=== PATIENT | male | born 1980 | race Caucasian/White ===

== ENCOUNTER 2023-09-12 00:43 | Observation (INO) | payer OTHER, SELFPAY ==
[2023-09-11 18:42] VITALS: BP 130/88
[2023-09-11] MEDS: OMNIPAQUE 50 ML PO (21:17)
[2023-09-11 21:19] VITALS: BP 126/78; BMI 26.5
[2023-09-11 21:27] LABS: % Basophils 0.2 % (0-2); % Eosinophils 0.2 % (0-6); % Immature Granulocytes 0.3 % (0-0.5); % Lymphocytes 2.9 % (20.5-51.1); % Monocytes 4.1 % (1.7-9.3); % Neutrophils 92.3 % (42.2-75.2); Absolute Lymphocytes 0.3 10^3/uL (1.2-3.4); Absolute Monocytes 0.5 10^3/uL (0.1-0.6); Absolute Neutrophils 10.5 10^3/uL (1.4-6.5); Hematocrit 42.6 % (39.0-52.0); Hemoglobin 15.1 g/dL (13.0-18.0); Mean Corp Hgb Conc. 35.4 g/dL (33.0-37.0); Mean Corpuscular Hgb 31.7 pg (27.0-31.0); Mean Corpuscular Volume 89.3 fL (80.0-94.0); Mean Platelet Volume 11.2 fL (7.4-10.4); Nucleated Red Blood Cells % 0 % (-); Platelet Count 163 10^3/uL (130-400); Red Blood Cell Count 4.77 10^6/uL (4.70-6.10); Red Cell Dist. Width 13.2 % (11.5-14.5); White Blood Cell Count 11.4 10^3/uL (4.8-10.8)
[2023-09-11 21:55] LABS: ALT (SGPT) 28 U/L (0-50); AST (SGOT) 35 U/L (17-59); Albumin 4.6 g/dl (3.5-5.0); Alkaline Phosphatase 70 U/L (38-126); Blood Urea Nitrogen 18 mg/dl (9-20); Calcium 9.6 mg/dl (8.4-10.2); Carbon Dioxide 24 mmol/L (22-30); Chloride 102 mmol/L (98-107); Estimated Creatinine Clearance 80 ml/min; Glucose 119 mg/dl (70-99); Lipase 81 U/L (23-300); Potassium 3.5 mmol/L (3.5-5.1); Sodium 134 mmol/L (135-145); Total Protein 7.4 g/dl (6.3-8.2); eGFR > 60.00
[2023-09-11 22:41] LABS: Urine Albumin Negative (Neg - Trace); Urine Bilirubin Negative (Negative); Urine Character Clear (Clear); Urine Color Yellow; Urine Glucose Negative (Negative); Urine Ketone 3+ (Negative); Urine Leukocyte Negative (Negative); Urine Nitrite Negative (Negative); Urine Occult Blood Trace (Negative); Urine Specific Gravity 1.015 (<1.030); Urine Urobilinogen Negative (Neg - 1+); Urine pH 6.5 (5.0-9.0)
[2023-09-11 22:52] LABS: Urine Red Blood Cell 0-2 /HPF (0-2); Urine Squamous Cell 0-2 /LPF (Few); Urine White Cell None Seen /HPF (0-5)
--- NOTE | 2023-09-11 23:00 | ED.GENMED ---
History of Present Illness
<Milli Kaplan NP - Last Filed: 09/11/23 23:03>
General
Chief Complaint: Abdominal Pain
Source: patient
Exam Limitations: none
Time Seen by Provider: 09/11/23 20:37
Nursing documentation reviewed up to this point in time: agreed with
Travel History
Have you had any contact with someone who has COVID-19?: No
Do you have any symptoms of coronavirus? Fever > 100 degrees, chills, cough, shortness of breath, sore throat, loss of taste or smell, muscle aches, or headache?: No
History of Present Illness
History of Present Illness:
Patient to eD with complaint of diffuse abdominal pain. States pain started last PM and continues to worsen. Denies fever/chill. +nausea, no vomiting. Had 1 episode of diarrhea last PM Brought self to ED for eval
Past History
<Milli Kaplan NP - Last Filed: 09/11/23 23:03>
Past History
ED Past Medical History: None
ED Past Surgical History: None
Social History
Tobacco: Non-smoker
Alcohol: Occasional
Drug: None
Review of Systems
<Milli Kaplan NP - Last Filed: 09/11/23 23:03>
Review of Systems
Allergies reviewed?: Yes
All Other Systems: ROS reviewed and negative except as documented in HPI and ROS
Constitutional: Reports no symptoms
EENT: Reports no symptoms
Respiratory: Reports no symptoms
Cardiac: Reports no symptoms
ABD/GI: Reports abdominal pain, nausea and diarrhea
: Reports no symptoms
Musculoskeletal: Reports no symptoms
Skin: Reports no symptoms
Neurological: Reports no symptoms
Psychiatric: Reports no symptoms
Phy Exam
<Milli Kaplan NP - Last Filed: 09/11/23 23:03>
General Physical Exam
General Presentation: well appearing and mild distress
General age: appears stated age
General Skin: warm and dry
General Habitus: normal
General Mental: alert
Cardiovascular Exam
Cardiovascular Exam: regular rate/rhythm
Gastrointestinal Exam
Gastrointestinal Exam: normal bowel sounds, soft, no organomegaly, non distended and no cva tenderness
Palpation: generalized: Moderate tenderness
Musculoskeletal Exam
Musculoskeletal Exam: full ROM and neuro vasc intact
Skin Exam
Skin Exam: normal color, warm/dry and no rash
Psychiatric Exam
Psychiatric Exam: normal mood/affect
Course
<Milli Kaplan NP - Last Filed: 09/11/23 23:03>
Orders/Labs/Results
Orders:
Orders
09/11/23 20:52
CT Abd/pel W Iv And Oral Contr Urgent
Comment:
Reason For Exam: pain, diffuse
Iohexol [Omnipaque] See Protocol PO NOW STA
09/11/23 21:18
Complete Blood Count/With Diff Urgent
Comprehensive Metabolic Panel Urgent
Lipase Urgent
09/11/23 22:33
Urinalysis Reflex To Culture Urgent
Date Specimen was Collected: 09/11/23
Time Specimen was Collected: 22:32
Urine Microscopic Reflex Cult Urgent
09/11/23 23:56
Acetaminophen [Tylenol] 1,000 mg PO NOW STA
09/11/23 23:57
Acetaminophen [Tylenol] 1,000 mg .ROUTE .STK-MED ONE
09/12/23 00:23
LevoFLOXacin 500 MG/100 ML [Levaquin] 500 mg in 100 ml IV NOW
09/12/23 00:24
0.9% Sodium Chloride 1000 ml [Nss] 1,000 ml IV BOLUS
HYDROmorphone [Dilaudid] 0.5 mg IV NOW STA
MetroNIDAZOLE 500 MG/100 ML [Flagyl 500 mg] 100 ml IV NOW
Abnormal Lab Results
09/11/23 09/11/23
21:18 22:33
WBC 11.4 H 10^3/uL
(4.8-10.8)
MCH 31.7 H pg
(27.0-31.0)
MPV 11.2 H fL
(7.4-10.4)
Absolute Neuts (auto) 10.5 H 10^3/uL
(1.4-6.5)
Absolute Lymphs (auto) 0.3 L 10^3/uL
(1.2-3.4)
Neutrophils % 92.3 H %
(42.2-75.2)
Lymphocytes % 2.9 L %
(20.5-51.1)
Sodium 134 L mmol/L
(135-145)
Glucose 119 H mg/dl
(70-99)
Total Bilirubin 2.0 H mg/dl
(0.2-1.3)
Urine Ketones 3+ A
(Negative)
Ur Occult Blood Reflex Trace A
(Negative)
09/11/23 21:18
09/11/23 21:18
Vital Signs
Initial and Last Documented VS:
Initial Vital Signs
Temp Pulse Resp BP Pulse Ox
98.5 F 74 20 130/88 100
09/11/23 18:42 09/11/23 18:42 09/11/23 18:42 09/11/23 18:42 09/11/23 18:42
Last Documented Vital Signs
Temp Pulse Resp BP Pulse Ox
100.5 F H 86 20 112/75 96
09/11/23 23:54 09/11/23 23:54 09/11/23 18:42 09/11/23 23:54 09/11/23 23:54
Timilt;Martinez Mariano, DO - Last Filed: 09/12/23 00:27>
Orders/Labs/Results
Orders:
Orders
09/11/23 20:52
CT Abd/pel W Iv And Oral Contr Urgent
Comment:
Reason For Exam: pain, diffuse
Iohexol [Omnipaque] See Protocol PO NOW STA
09/11/23 21:18
Complete Blood Count/With Diff Urgent
Comprehensive Metabolic Panel Urgent
Lipase Urgent
09/11/23 22:33
Urinalysis Reflex To Culture Urgent
Date Specimen was Collected: 09/11/23
Time Specimen was Collected: 22:32
Urine Microscopic Reflex Cult Urgent
09/11/23 23:56
Acetaminophen [Tylenol] 1,000 mg PO NOW STA
09/11/23 23:57
Acetaminophen [Tylenol] 1,000 mg .ROUTE .STK-MED ONE
09/12/23 00:23
LevoFLOXacin 500 MG/100 ML [Levaquin] 500 mg in 100 ml IV NOW
09/12/23 00:24
0.9% Sodium Chloride 1000 ml [Nss] 1,000 ml IV BOLUS
HYDROmorphone [Dilaudid] 0.5 mg IV NOW STA
MetroNIDAZOLE 500 MG/100 ML [Flagyl 500 mg] 100 ml IV NOW
Abnormal Lab Results
09/11/23 09/11/23
21:18 22:33
WBC 11.4 H 10^3/uL
(4.8-10.8)
MCH 31.7 H pg
(27.0-31.0)
MPV 11.2 H fL
(7.4-10.4)
Absolute Neuts (auto) 10.5 H 10^3/uL
(1.4-6.5)
Absolute Lymphs (auto) 0.3 L 10^3/uL
(1.2-3.4)
Neutrophils % 92.3 H %
(42.2-75.2)
Lymphocytes % 2.9 L %
(20.5-51.1)
Sodium 134 L mmol/L
(135-145)
Glucose 119 H mg/dl
(70-99)
Total Bilirubin 2.0 H mg/dl
(0.2-1.3)
Urine Ketones 3+ A
(Negative)
Ur Occult Blood Reflex Trace A
(Negative)
09/11/23 21:18
09/11/23 21:18
Vital Signs
Initial and Last Documented VS:
Initial Vital Signs
Temp Pulse Resp BP Pulse Ox
98.5 F 74 20 130/88 100
09/11/23 18:42 09/11/23 18:42 09/11/23 18:42 09/11/23 18:42 09/11/23 18:42
Last Documented Vital Signs
Temp Pulse Resp BP Pulse Ox
100.5 F H 86 20 112/75 96
09/11/23 23:54 09/11/23 23:54 09/11/23 18:42 09/11/23 23:54 09/11/23 23:54
<Martinez Mariano DO - Last Filed: 09/12/23 00:27>
*Radiology
Radiology exam reviewed: radiology read reviewed
*Pulse Oximetry
Patient hypoxic: no
*Critical Care Note
Total Time (30-74mins, 75-104mins- exclusive of procedures): Not Applicable
ED Attending Note
<Milli Kaplan NP - Last Filed: 09/11/23 23:03>
-
Portions of this chart may have been created with voice recognition software.� Occasional wrong word or��sound alike� substitutions may have occurred due to the inherent limitations of voice recognition software.
<Martinez Mariano DO - Last Filed: 09/12/23 00:27>
ED Attending Note
Patient seen and examined by attending physician: Yes
I performed the substantive portion of visit, reviewed & personally made and approve the management plan that is documented in note by myself or LORA.: Yes
ED Attending Note:
Seen with SCHOOL INSPECTOR examined independently reviewed with [facility] radi[facility]
Positive appendicitis
On exam patient is febrile tender in the right lower abdomen
Allergies noted will start antibiotics message sent to house SCHOOL INSPECTOR and general surgeon on-call
Discharge Plan
Departure
Patient Disposition: Admit
Date of Disposition: 09/12/23
Time of Disposition: 00:26
Admit to: Med/Surg
Presentation/result/management discussed w/ accepting MD/DO: GS
Patient with high blood pressure during this ER visit?: No
Condition: Good
Covid-19: Not Applicable
Discharge Problem:
Acute appendicitis
Referrals:
Salvador Casillas MD [Family Provider] -
Interventions
Interventions:
*Risk Screen - Suicide Last Done: 09/11/23 18:42
*General Assessment Last Done: 09/11/23 18:42
*Neglect/Abuse Screening Last Done: 09/11/23 18:42
*ED COVID-19 Vaccine History Last Done: 09/11/23 21:19
ZD-Txxnqf-Cdjgkwyjoe Assessment Last Done: 09/11/23 21:26
Discharge Date and Time
Print Language: [place]
[2023-09-11 23:54] VITALS: BP 112/75
[2023-09-11] MEDS: TYLENOL 1000 MG PO (23:59)
[2023-09-12] VITALS (10 sets, daily range): BP systolic 92–110; BP diastolic 61–84
--- NOTE | 2023-09-12 00:26 | HPS.HSE ---
Addendum entered and electronically signed by Rikci Jacobo MD 09/12/23 11:32:
I saw and examined the patient.
The Billing Services Manager's note was reviewed and I agree with the note.
Comment: RLQ ttp for about 2 days with chills, anorexia. Ttp on exam to RLQ. OCTOR for lap appy. IV abx
Original Note:
Family Physician
-
Family Physician: Salvador Casillas
Chief Complaint
-
Abdominal pain
History of Present Illness
43 years old male present in ER with a complain of abdominal pain that started last night around 7pm. Pain started around umbilical area rated 4/10 of pain scale felt as gas pressure. Patient took 2 Tums that was not effective. Symptoms associated
with nausea. Denied vomiting, diarrhea, constipation, urinary symptoms, SOB, chest pain or any other symptoms. Patient has no medical history and no pervious surgery and currently not receiving any meds in home .
Medical History
Past Medical History
Past Medical History: Reports None
Past Surgical History: Reports None
Social History
Tobacco: Non-smoker
Alcohol: Occasional
Drug: None
Personal: Other
Living: Other
Employment: Other
Family History
Family History: Not pertinent
Allergies / Home Medications
Allergies reflects when Allergies were last updated in [facility].
Home Medications with original date entered in [facility]
Allergy/Medication List:
Patient Allergies
Allergy/AdvReac Type Severity Reaction Status Date / Time
Penicillins Allergy Unknown Verified 09/11/23 18:45
This is your updated home medication list that has been updated as of 09/12/23
If Other, explain: Patient is not receiving meds at home
Review of Systems
-
Constitutional: Reports No Symptoms
Respiratory: Reports No Symptoms
Cardiac: Reports No Symptoms
Abdomen/GI: Reports Abdominal Pain (RLQ) and Nausea
: Reports No Symptoms
Musculoskeletal: Reports No Symptoms
Skin: Reports No Symptoms
Neurological: Reports No Symptoms
Endocrine: Reports No Symptoms
Hematologic/Lymphatic: Reports No Symptoms
Psych: Reports No Symptoms
Physical Exam
Vital Signs
Vital Signs
Temp Pulse Resp BP Pulse Ox
100.5 F H 86 20 112/75 96
09/11/23 23:54 09/11/23 23:54 09/11/23 18:42 09/11/23 23:54 09/11/23 23:54
Physical Exam
General: No Apparent Distress
Respiratory: Clear
Cardiac: Regular Rhythm
GI: Soft, Normal Bowel Sounds and Tender (RLQ, + McBurney point and obturator sign )
Musculoskeletal: No Edema
Skin: Warm
Neuro: AO x 3
Psych: Calm
Laboratory Results
-
09/11/23 21:18
09/11/23 21:18
Laboratory Results
Total Bilirubin 2.0 mg/dl (0.2-1.3) H 09/11/23 21:18
AST 35 U/L (17-59) 09/11/23 21:18
ALT 28 U/L (0-50) 09/11/23 21:18
Alkaline Phosphatase 70 U/L (38-126) 09/11/23 21:18
Lipase 81 U/L (23-300) 09/11/23 21:18
Data Reviewed
-
Lab Data: Discussed with Patient
Impression/Plan
-
CT abdomen/plvs shows acute appendicitis, appendix is abnormally enlarged at 12mm. there is associated enlargement and surrounding inflammatory stranding, but no abscess or evidence of perforation.
There is secondary thickening of the cecal lip and the adjacent terminal ileum.
Stool levels in the large bowel suggestive of diarrhea. No evidence of obstruction, wall thickening, or inflammatory stranding,
-Gallbladder and kidney are unremarkable.
-WBC 11.4, Temp 100.5
IMPRESSION:
acute appendicitis
PLAN:
Admit/ observation (Dr. Jacobo / general surgery)
NPO
IVF
analgesics
antiemetics
Abx received levofloxacin and Metronidazole in ER patient is allergic to penicillins.
DVT Prophylaxis: SCDs
Code status: Full code
[2023-09-12] MEDS: LEVAQUIN 100 IV (00:35)
[2023-09-12] MEDS: NSS 1000 IV ×2 (00:35→00:45)
[2023-09-12] MEDS: FLAGYL 500 MG 100 IV (02:00)
--- NOTE | 2023-09-12 04:44 | DOWNTIME ---
There was a [employer] Client Rehabilitation Program Coordinator Downtime on 09/12/2023 from 0100 to 09/12/2023 at 0439. Downtime documentation of patient's care, including medication administrations, has been reconciled in the electronic record per guidelines. Refer to the
patient's paper chart under the miscellaneous tab to see printed paper medication records and downtime forms.
--- NOTE | 2023-09-12 12:50 | W.IMMPOSTOP ---
Surgical Immed Post Op Note
-
Primary Surgeon: Odalis
Pre-op Diagnosis: Acute appendicitis
Post-op Diagnosis: Same
Procedure Performed: Laparoscopic appendectomy
Anesthesia Type: GETA
Specimen / Cultures: Appendix
Estimated Blood Loss: 5cc
Complications: None immediate
Operative Findings: Severely inflamed, nonperforated appendicitis
--- NOTE | 2023-09-12 12:51 | OR.RPT ---
Operative Report
Operative Report
Primary Surgeon: Odalis
Pre-op Diagnosis: Acute appendicitis
Post-op Diagnosis: Same
Procedure Performed: Laparoscopic appendectomy
Anesthesia Type: GETA
Specimen / Cultures: Appendix
Estimated Blood Loss: 5cc
Complications: None immediate
Operative Findings: Severely inflamed, nonperforated appendicitis
Date of Surgery: 09/12/23
Indications: This 43M developed right lower quadrant abdominal pain and on workup was found to have acute appendicitis. Laparoscopic appendectomy was elected.
Description of procedure: The patient was placed on the operating table in the supine position. General anesthesia was induced. A time-out was completed verifying correct patient, procedure, site, positioning, and special equipment prior to
beginning this procedure. An orogastric tube was placed. The abdomen was prepped and draped in the usual sterile fashion. A stab incision was made in left upper quadrant and the Veress needle was inserted. Proper position was confirmed by aspiration
and saline meniscus test. The abdomen was insufflated with carbon dioxide to a pressure of 12 mmHg. The patient tolerated insufflation well.
A 5mm optical trocar was then inserted at the left lower quadrant. The laparoscope was inserted and the abdomen inspected. No injuries from initial trocar placement or Veress needle insertion were noted. Additional trocars were then inserted in the
following locations: a 12-mm trocar at the umbilicus and a 5-mm trocar midline in the suprapubic space. The abdomen was inspected and no abnormalities were found. The table was placed in the Trendelenburg position with the right side up. The
appendix was severely enflamed and covered by a sheet of omentum. The omentum was peeled up and away exposing the appendiceal tip. The tip of the appendix was gently grasped with an atraumatic grasper and retracted toward the patient�s feet and
abdominal wall. This maneuver exposed the appendiceal blood supply which was controlled with the Ligasure device. Following this, a laparoscopic linear cutting stapler with a 45mm johnson load was deployed and used to transect the appendix at its base.
The appendix was placed in an endoscopic retrieval bag, removed through the umbilical port, and passed off the table as a specimen.
We then turned our attention to the staple line, which was noted to be hemostatic. Scant turbid free fluid was suctioned from the pelvis. The umbilical trocar site was closed at the fascial level laparoscopically with 2-0 PDS under direct vision.
Secondary trocars were removed under direct vision and noted to be hemostatic. The laparoscope was withdrawn and the abdomen was allowed to collapse. The skin was closed with subcuticular sutures of 4-0 monocryl and topical skin adhesive. The
orogastric tube was removed.
The patient tolerated the procedure well and was taken to the postanesthesia care unit in stable condition.
== END 2023-09-12 15:25 | disposition home or self-care (01) ==
LOC: PACUI 00:43
PROVIDERS: Nurse Practitioner; ADMITTING PHYSICIAN Surgery; EMERGENCY PHYSICIAN Emergency Medicine; FAMILY PHYSICIAN Family Medicine
DX: K35.80 Unspecified acute appendicitis (principal)
CPT/HCPCS: 44970; 88304; 74177; 80053; 81003; 81015; 83690; 85025; 99285; G0378; Q9967

== ENCOUNTER 2024-05-27 06:44 | Emergency (ER) | payer OTHER, SELFPAY ==
[2024-05-27 06:53] VITALS: BP 132/85
[2024-05-27 07:14] LABS: % Basophils 0.5 % (0-2); % Eosinophils 17.1 % (0-6); % Immature Granulocytes 0.2 % (0-0.5); % Lymphocytes 21.5 % (20.5-51.1); % Monocytes 8.7 % (1.7-9.3); Absolute Lymphocytes 1.3 10^3/uL (1.2-3.4); Absolute Monocytes 0.5 10^3/uL (0.1-0.6); Absolute Neutrophils 3.2 10^3/uL (1.4-6.5); Hemoglobin 14.9 g/dL (13.0-18.0); Mean Corp Hgb Conc. 33.9 g/dL (33.0-37.0); Mean Corpuscular Hgb 31.3 pg (27.0-31.0); Mean Corpuscular Volume 92.4 fL (80.0-94.0); Mean Platelet Volume 11.2 fL (7.4-10.4); Nucleated Red Blood Cells % 0 % (-); Platelet Count 159 10^3/uL (130-400); Red Blood Cell Count 4.76 10^6/uL (4.70-6.10); Red Cell Dist. Width 12.9 % (11.5-14.5); White Blood Cell Count 6.1 10^3/uL (4.8-10.8)
[2024-05-27 07:27] LABS: ALT (SGPT) 34 U/L (0-50); AST (SGOT) 37 U/L (17-59); Albumin 4.4 g/dl (3.5-5.0); Alkaline Phosphatase 65 U/L (38-126); Blood Urea Nitrogen 20 mg/dl (9-20); Calcium 9.5 mg/dl (8.4-10.2); Carbon Dioxide 27 mmol/L (22-30); Chloride 104 mmol/L (98-107); Glucose 113 mg/dl (70-99); Potassium 4.2 mmol/L (3.5-5.1); Sodium 138 mmol/L (135-145); Total Bilirubin 0.8 mg/dl (0.2-1.3); Total Protein 6.9 g/dl (6.3-8.2); eGFR 57.79
[2024-05-27 07:38] LABS: Troponin I 0.012 ng/ml
[2024-05-27 10:04] VITALS: BMI 28.2
[2024-05-27 10:30] VITALS: BP 122/85
[2024-05-27 10:40] VITALS: BP 122/84
[2024-05-27 10:50] VITALS: BP 127/81
[2024-05-27 11:00] VITALS: BP 121/90
--- NOTE | 2024-05-27 11:38 | ED.GENMED ---
History of Present Illness
General
Chief Complaint: Chest Pain
Source: patient
Time Seen by Provider: 05/27/24 09:27
History of Present Illness
History of Present Illness:
44-year-old male with no significant past medical history presenting to the emergency department for evaluation after waking up around 4 AM this morning with a discomfort in the sternal to right side of his anterior chest, somewhat constant and
accompanied with a little bit of nausea with nausea now resolved and the chest discomfort mostly resolved. Patient states he cannot think of anything that may have caused the symptoms noting that he had a normal dinner last night, denies any other
symptoms including fevers or recent illnesses, cough, nasal congestion, sore throat, abdominal pain, back or flank pain, urinary symptoms or bowel changes. Social history was unremarkable. He does note for the holiday season he has been eating
little bit more sugary foods than normal. Social history was otherwise noncontributory. Family history was noted for father having a history of atrial fibrillation.
Past History
Past History
ED Past Medical History: None
ED Past Surgical History: Appendectomy
Social History
Tobacco: Non-smoker
Alcohol: Occasional
Drug: None
Personal:
Living: with family
Review of Systems
Review of Systems
All Other Systems: ROS reviewed and negative except as documented in HPI and ROS
Phy Exam
Physical Exam
Physical Exam:
GENERAL: Alert , in no apparent distress
HEAD: NCAT
EYE: clear conjunctiva
NECK: Supple
ENT: o/p clr, mmm.
CARDIAC: Regular rate and rhythm, no murmur .
LUNGS: Clear breath sounds bilaterally, no acute respiratory distress, no wheezes/rales/rhonchi
ABDOMEN: Soft, without focal tenderness, no r/g, no cvat
NEUROLOGICAL: Alert and oriented
SKIN: Warm and dry, skin intact.
MUSCULOSKELETAL: No edema, well perfused.
PSYCH: Normal and appropriate interaction.
Scores
Heart Failure Risk
Heart Failure Risk Score: Not Applicable
Heart Score for Chest Pain Patients
STEMI patient?: No
History: Slightly or Non-Suspicious
ECG: Normal
Age: >45 - <65 years
Risk Factors: No Risk Factors
Troponin: </= Normal Limit
Heart Score for Chest Pain Patients: 1
Heart Score Risk: 2.5% MACE over next 6 weeks
Withdrawal Assessment of Alcohol
Withdrawal Assessment Completed?: Not applicable
Course
Orders/Labs/Results
Orders:
Orders
05/27/24 06:52
Electrocardiogram (*1) Urgent
Reason for Study: Chest Pain
EKG- Treatment ONCE
05/27/24 07:01
Complete Blood Count/With Diff Urgent
Comprehensive Metabolic Panel Urgent
Troponin I Urgent
05/27/24 07:07
CR Chest - 2 Views Urgent
Comment:
Reason For Exam: chest pain
05/27/24 09:58
Electrocardiogram (*1) Urgent
Reason for Study: Abdominal Pain
EKG- Treatment ONCE
05/27/24 11:01
Troponin I Urgent
Abnormal Lab Results
05/27/24
07:01
MCH 31.3 H pg
(27.0-31.0)
MPV 11.2 H fL
(7.4-10.4)
Absolute Eos (auto) 1.0 H 10^3/uL
(0-0.7)
Eosinophils % 17.1 H %
(0-6)
Creatinine 1.5 H mg/dL
(0.7-1.3)
Glucose 113 H mg/dl
(70-99)
05/27/24 07:01
05/27/24 07:01
Vital Signs
Initial and Last Documented VS:
Initial Vital Signs
Temp Pulse Resp BP Pulse Ox
98.3 F 62 16 132/85 100
05/27/24 06:53 05/27/24 06:53 05/27/24 06:53 05/27/24 06:53 05/27/24 06:53
Last Documented Vital Signs
Temp Pulse Resp BP Pulse Ox
98.7 F 62 22 121/90 100
05/27/24 10:04 05/27/24 11:00 05/27/24 11:00 05/27/24 11:00 05/27/24 11:00
MDM/Problems Addressed
Differential Diagnosis Includes:
ACS, GERD, Gastritis, no symptoms to suggest PE. No recent illness to suggest myocarditis/pericarditis, no infectious symptoms
MDM/Problems Addressed:
44-year-old male presenting the ER for evaluation of right sided to sternal chest discomfort since this morning around 4 AM. Accompanied with some mild nausea. At time of my evaluation symptoms are mostly resolved. Patient has no risk factors for
ACS. His EKG on arrival is without any evidence for ischemia. Initial set of labs was ordered which showed a negative troponin. Patient did have a slightly elevated creatinine which could potentially be from some mild dehydration. Advised
patient to increase p.o. intake of fluids. Will repeat a 3-hour troponin and pending chest x-ray. Anticipate chest pain hotline referral for outpatient management.
*Radiology
Radiology exam reviewed: preliminary read by ED provider (Normal chest x-ray)
*Pulse Oximetry
Patient hypoxic: no
*EKG
Heart Rate: 53
Rate: bradycardiac
Rhythm: sinus
[place]: normal axis
Ischemia: no ischemia
*Critical Care Note
Total Time (30-74mins, 75-104mins- exclusive of procedures): Not Applicable
Patient Management
Escalation/DeEscalation of care consider admission/obs:
Repeat chest x-ray and troponin are without any evidence for ischemia. Patient stable for discharge home and aware of return precautions.
ED Attending Note
-
Portions of this chart may have been created with voice recognition software.� Occasional wrong word or��sound alike� substitutions may have occurred due to the inherent limitations of voice recognition software.
Discharge Plan
Departure
Patient Disposition: Home (Routine Discharge)
Date of Disposition: 05/27/24
Time of Disposition: 11:54
Patient with high blood pressure during this ER visit?: No
Discharge Problem:
Chest pain
Instructions: Chest Pain DCA Follow Up
Prescriptions:
No Action
Ag1 Supplement powder
1 tsp PO DAILY
creatine monohydrate Powder
1 ea PO QPM
Patient Comments:
09/12/2023, 1 tsp.
oxycodone 5 mg tablet
5 - 10 mg PO Q4HPRN PRN (Reason: moderate to severe pain) Qty: 10 0RF
Referrals:
Cindy Stover MD [Family Provider] -
Interventions
Interventions:
*Neglect/Abuse Screening Last Done: 05/27/24 10:04
*ED COVID-19 Vaccine History Last Done: 05/27/24 10:04
*Nursing Disposition Last Done: 05/27/24 12:05
ED- Cardiac Assessment Last Done: 05/27/24 10:04
Discharge Date and Time
Discharge Date/Time: 05/27/24 12:06
Print Language: [place]
[2024-05-27 11:40] LABS: Troponin I < 0.012 ng/ml
== END 2024-05-27 12:06 | disposition home or self-care (01) ==
LOC: EMR 06:44
PROVIDERS: Emergency Medicine; Physician Assistant Medical; EMERGENCY PHYSICIAN Emergency Medicine; FAMILY PHYSICIAN Family Medicine
DX: R07.89 Other chest pain (principal); Z90.49 Acquired absence of other specified parts of digestive tract; Z82.49 Family history of ischemic heart disease and other diseases of the circulatory system
CPT/HCPCS: 99285; 71046; 80053; 84484; 85025; 93005